=== PATIENT | male | born 1960 | race Caucasian/White ===

== ENCOUNTER 2016-10-13 01:54 | Emergency (ER) | payer OTHER ==
[~2016-10-13] VITALS: Ht 172.7 cm; Wt 79.5 kg
[2016-10-13 01:59] VITALS: Ht 172.7 cm; Wt 79.5 kg
[2016-10-13] MEDS ORDERED: ACYC800T57 PO (03:14)
--- NOTE | 2016-10-13 04:50 | ERD ---
ER Documentation Chief Complaint Date/Time DATE: 10/13/16 TIME: 04:46 Chief Complaint fever x 1 day; took ibuprofen this AM HPI 56-year-old male complaining of subjective fever since 2 PM yesterday. Patient reports nonproductive cough earlier. He feels fatigued, and has muscle aches. He took ibuprofen 2 hours ago. Patient also reports cold sores since today. He had a history of cold sores, usually gets them about once a year. Denies shortness of breath. Denies abdominal pain, nausea, vomiting, or diarrhea. Denies headache or neck pain. ROS All systems reviewed and are negative except as per history of present illness. Medications Home Meds Active Scripts Acyclovir* (Zovirax*) 800 Mg Tablet, 800 MG PO 5 TIMES DAILY for 7 Days, TAB Prov:GEOVANNI ETIENNE. PROFESSOR OF JOURNALISM 10/13/16 Allergies Allergies: Coded Allergies: No Known Allergy (Unverified , 10/13/16) PMhx/Soc Hx Miscellaneous Medical Probl: Yes (DM2) Hx Alcohol Use: Yes (BEER ONCE A MONTH) Hx Substance Use: No Hx Tobacco Use: No Smoking Status: Never smoker Physical Exam Vitals Vital Signs Date Time Temp Pulse Resp B/P Pulse Ox O2 Delivery O2 Flow Rate FiO2 10/13/16 01:59 99.4 74 20 119/70 95 Physical Exam General: Well-developed, well-nourished, conscious and coherent, in no distress Skin: Warm and dry without rash, good texture and turgor Head: Normocephalic without evidence of trauma Eyes: Sclera and conjunctivae normal; pupils equal, round, and reactive to light; extraocular movements are intact Ears: Canals are patent. Tympanic membranes are clear Nose/Face: Without rhinorrhea Mouth/throat: Mucous membranes are moist. Posterior pharynx clear without erythema or exudates. Vesicular lesions noted surrounding his lips. Neck: Supple without meningismus or adenopathy. Carotids are equal. Trachea midline. No bruits or JVD Chest: Normal AP diameter. Good expansion without retractions. Nontender. Lungs are clear to auscultate bilaterally with good tidal volume Heart: Regular rate and rhythm. No murmur, rub, or gallops heard Abdomen: Soft and nontender without masses, guarding, or rebound. Bowel sounds are active. No hepatosplenomegaly Extremities: Full range of motion. Good strength bilaterally. No clubbing, cyanosis, or edema. Peripheral pulses are intact. Sensation intact Neuro: Alert and oriented 4, GCS 15. Cranial nerves grossly intact. Motor and sensory exams nonfocal. Moves all extremities. Speech clear. Gait normal Procedures/MDM Well-appearing 56-year-old male complaining of subjective fever 1 day. Patient is afebrile, in no respiratory distress. Lungs are clear to auscultate. I doubt that patient has pneumonia or bronchitis. He does have herpes simplex outbreak 1 day as well. I suspect his subjective fever is due to herpes outbreak. Patient appears well, stable for discharge and outpatient management. Medical decision making shared with patient and family. Education provided to patient and family. Patient and family expressed understanding of the plan. Medications on discharge: Acyclovir. Follow-up: Primary care provider in 2-3 days or return to ED if worse. Disclaimer: Inadvertent spelling and grammatical errors are likely due to EHR/ dictation software use and do not reflect on the overall quality of patient care. Also, please note that the electronic time recorded on this note does not necessarily reflect the actual time of the patient encounter. Departure Diagnosis: Primary Impression: Herpes simplex Condition: Stable Patient Instructions: Herpes Labialis, Hsv: Type I [facility] Usted se pereira hecho un examen mdico de control que le indica que no est en venice condicin que requiera tratamiento urgente en el Departamento de Emergencia. Un estudio ms profundo y el tratamiento de griffith condicin pueden esperar sin ningn riesgo hasta que usted sea atendida/o en el consultorio de griffith mdico o venice cl kaylin. Es responsabilidad suya arreglar venice mateo para el seguimiento del christina. MANEJO DE CONDICIONES NO URGENTES EN EL FUTURO 1) Si usted tiene un mdico de atencin primaria: Usted debera llamar a griffith mdico de atencin primaria antes de venir al departamento de emergencia. Despus de las horas de consultorio, griffith doctor o griffith asociado/a est disponible por telfono. El mdico o enfermero de gold en el servicio telefnico puede asesorarle por bethel medio para atender el problema, o christina contrario se puede programar venice mateo. 2) Si usted no tiene un mdico de atencin primaria: Llame al mdico o clnica de referencia que aparece abajo neil las horas de consultorio para hacer venice mateo para que le vean. CLINICAS: [facility] [phone] [facility] [phone] [facility] [[email or web address]] [phone] [address] [place] [phone] [place] [id number] [phone] [facility]. [phone] [address] Additional Instructions: Llame al doctor MAANA y keren venice MATEO PARA DENTRO DE 2-3 HUBBARD.Dgale a la secretaria que nosotros le instruimos hacer esta mateo.Avise o llame si griffith condicin se empeora antes de la mateo. Regresa aqui si peor o no mejor. GEOVANNI ETIENNE NP Oct 13, 2016 04:50
== END 2016-10-13 03:27 | disposition home or self-care (01) ==
LOC: FTE 01:54
DX: B00.9 Herpesviral infection, unspecified (principal)
CPT/HCPCS: 99283

== ENCOUNTER 2018-08-10 17:52 | Emergency (ER) | payer OTHER ==
[~2018-08-10] VITALS: Ht 152.4 cm; Wt 78.2 kg
[~2018-08-10 17:52] MED LIST: ACYC800T5 PO
[2018-08-10 17:54] VITALS: Ht 152.4 cm; Wt 78.2 kg
--- NOTE | 2018-08-10 18:24 | ERD ---
ER Documentation Chief Complaint Chief Complaint RIGHT FOOT PAIN AFTER FALL HPI 57-year-old male with no significant past medical history presenting to the emergency department complaining of right ankle and right foot pain after inverting his right ankle yesterday. He states he was hiking and misstepped causing injury. He reports intermittent pain which is currently rated 7/10 in severity and worse with walking. He took Advil at home with some relief. He denies any head injury, loss of consciousness, or other symptoms or injuries at this time. ROS All systems reviewed and are negative except as per history of present illness. Medications Home Meds Active Scripts Hydrocodone/Acetaminophen ([place] 5-325 Tablet) 1 Each Tablet, 1 TAB PO Q6H PRN for PAIN, #7 TAB Prov:BENY LUU PA-C 08/10/18 Naproxen* (Naprosyn*) 500 Mg Tablet, 500 MG PO BID PRN for PAIN AND/OR INFLAMMATION, #30 TAB Prov:BENY LUU PA-C 08/10/18 Acyclovir* (Zovirax*) 800 Mg Tablet, 800 MG PO 5 TIMES DAILY for 7 Days, TAB Prov:GEOVANNI ETIENNE NP 10/13/16 Allergies Allergies: Coded Allergies: No Known Allergy (Unverified , 10/13/16) PMhx/Soc Hx Miscellaneous Medical Probl: Yes (DM2) Hx Alcohol Use: Yes (BEER ONCE A MONTH) Hx Substance Use: No Hx Tobacco Use: No FmHx Family History: No diabetes Physical Exam Vitals Vital Signs Date Temp Pulse Resp B/P (MAP) Pulse Ox O2 O2 Flow FiO2 Time Delivery Rate 08/10/18 98.4 83 18 118/74 97 Room Air 19:52 (89) 08/10/18 98.0 78 20 123/75 99 17:54 (91) Physical Exam Const: No acute distress Head: Atraumatic Eyes: Normal Conjunctiva ENT: Normal External Ears, Nose and Mouth. Neck: Full range of motion. No meningismus. Resp: No respiratory distress. Skin: No petechiae or rashes Ext: Ecchymosis with associated tenderness to palpation of the medial and lateral malleolus of the right ankle. Patient is neurovascularly intact dis tally. No obvious deformity or open fracture noted. Additionally there is some warmth and erythema which is localized around a scab of the right anterior tibia region. Neur: Awake and alert Psych: Normal Mood and Affect Results 24 hrs Current Medications Medications Dose Sig/Robyn Start Time Status Last (Trade) Ordered Route PRN Stop Time Admin Dose Reason Admin 1 tab ONCE ONCE 08/10/18 DC 08/10/18 Acetaminophen PO 18:30 18:26 / 08/10/18 18:31 Hydrocodone Bitart ([place] ()) [place] [id number] Radiology Main Line: [phone] DIAGNOSTIC IMAGING REPORT Patient: STEFFI MAURO : 1960 Age: 57 Sex: M MR #: [id number] DOS: 08/10/18 0000 Ordering MD: BENY LUU PA-C Location: [facility] Room/Bed: PROCEDURE: Right ankle CLINICAL INDICATION: Pain TECHNIQUE: Previous COMPARISON: None FINDINGS: There is a linear radiodensity adjacent to the distal tibia adjacent to the malleolus. Correlate with avulsion fracture. There is nonspecific edema of the soft tissues please correlate with clinical exam for further assessment of acuity of the changes. The ankle mortise joint spaces are intact. IMPRESSION: 1. Small avulsion to the medial malleolus of the distal tibia not excluded. 2.. Soft tissue edema of the ankle. RPTAT: HPPP Physician [place] Date Time Electronically viewed and signed by Physician Savannah on 08/10/2018 19:27 RP/ CC: BENY LUU PA-C [id number] Procedures/MDM 57-year-old male presenting to the emergency department complaints of right ankle pain and right foot pain after injury yesterday. He denies any head injury or loss of consciousness. X-rays are notable for a right ankle fracture. The full report interpreted by the radiologist may be viewed above. History, physical examination, work-up most consistent with right right ankle fracture. Patient required splint for immobilization of fracture. He was given crutches with training.Splint Assessment: Neurovascularly intact post splint placement with good fit. Patient's extremity symptoms have stabilized while they have been evaluated in the department and are appropriate for outpatient follow up. No evidence of compartment syndrome, neurologic injury, vascular injury, open joint, open fracture, tendon laceration, or foreign body. No evidence of life-threatening pathology at time of discharge. Pt/family in agreement with discharge plan/diagnosis. Pt/family advised to return immediately with any new or worsening symptoms. Follow-up with primary care physician within the next 1-2 days. Departure Diagnosis: Primary Impression: Right ankle sprain Additional Impression: Cellulitis of right lower extremity Condition: BENY Lizama PA-C August 10, 2018 18:24
[2018-08-10] MEDS ORDERED: HYDROCODONE/APAP (5/325) TAB PO ONE (18:30)
[2018-08-10] MEDS ORDERED: NAPR-985 PO (19:32)
[2018-08-10] MEDS ORDERED: HYDR-4011 PO (19:32)
[2018-08-10 19:52] VITALS: BP 118/74; PULSE 83; RESP 18
== END 2018-08-10 19:51 | disposition home or self-care (01) ==
LOC: FTE 17:52
DX: S90.01XA Contusion of right ankle, initial encounter (principal); S93.401A Sprain of unspecified ligament of right ankle, initial encounter; W18.39XA Other fall on same level, initial encounter; Y92.9 Unspecified place or not applicable
CPT/HCPCS: 29515; 73610; 73630; Z7502; Z7610